=== PATIENT | male | born 1965 | race American Indian/Alaskan Native ===

== ENCOUNTER 2022-01-24 09:26 | Outpatient (CLI) | payer OTHER ==
[2022-01-24 10:07] LABS: BUN/Creatinine Ratio 14; Blood Urea Nitrogen 18 mg/dL (9-20); Calcium 9.8 mg/dL (8.4-10.2); Chol/HDL Ratio 4.66 %; HDL Cholesterol 42 mg/dL (40-59); Hemolysis Index 8; LDL Cholesterol,Direct 138 mg/dL (50-130)
== END 2022-01-24 09:27 | disposition home or self-care (01) ==
LOC: LAB 09:26
PROVIDERS: ATTEND Internal Medicine
DX: N28.9 Disorder of kidney and ureter, unspecified (principal); E78.5 Hyperlipidemia, unspecified
CPT/HCPCS: 36415; 80048; 80061